=== PATIENT | male | born 1990 | race Caucasian/White ===

== ENCOUNTER 2025-02-14 02:00 | Emergency (ER) | payer SELFPAY ==
[2025-02-14] MEDS: Ketorolac 30 MG/ML SDV IM ONE (03:32)
== END 2025-02-14 04:16 | disposition home or self-care (01) ==
LOC: JD.ED 02:00
DX: M25.512 Pain in left shoulder (principal); Z88.1 Allergy status to other antibiotic agents
CPT/HCPCS: 73030; 96372; 99283; J1885; 99282